=== PATIENT | male | born 1965 | race Caucasian/White ===

== ENCOUNTER → 2022-10-14 16:18 | Outpatient (CLI) | payer OTHER, MEDICAID, SELFPAY ==
[2022-10-14 16:52] LABS: Add Manual Diff / Slide Review NO; Basophils Absolute Auto 100 /uL (0-100); Basophils Percent Auto 1.2 % (0-2); Eosinophils Absolute Auto 100 /uL (0-450); Eosinophils Percent Auto 1.9 % (2-4); Hematocrit 47.1 % (41-53); Hemoglobin 15.9 g/dL (13.5-17.5); Lymphocytes Absolute Auto 2000 /uL (1100-4500); Lymphocytes Percent Auto 27.5 % (25-40); Mean Corpuscular HGB Conc 33.8 % (30-36); Mean Corpuscular Hemoglobin 29.5 PG (26-34); Mean Corpuscular Volume 87.1 fL (80-100); Monocytes Absolute Auto 700 /uL (0-900); Monocytes Percent Auto 9.9 % (3-14); Neutrophils Absolute Auto 4400 /uL (1500-7000); Neutrophils Percent Auto 59.5 % (50-75); Platelet Count 274 X10^3/uL (150-400); Red Blood Cell Count 5.41 X10^6/uL (4.5-5.9); White Blood Cell Count 7.4 X10^3/uL (4.5-11.0)
[2022-10-14 17:13] LABS: Alanine Aminotransferase 56 IU/L (<50); Albumin 4.4 g/dL (3.5-5.0); Albumin Globulin Ratio 1.5 (1.0-2.8); Alkaline Phosphatase 67 U/L (38-126); Aspartate Aminotransferase 37 IU/L (17-59); Bilirubin Total 0.5 mg/dL (0.2-1.3); Blood Urea Nitrogen 17 mg/dL (9-20); Calcium 9.5 mg/dL (8.4-10.2); Carbon Dioxide 27 mmol/L (22-32); Chloride 102 mmol/L (98-107); Cholesterol 227 mg/dL (140-199); Estimated Glomerular Filt Rate > 60 mL/min (>60); Glucose 84 mg/dL (70-100); HDL Cholesterol 47 mg/dL (40-60); HEMOLYSIS < 15 (0-50); LDL Cholesterol Calculated 137 mg/dL (<100); Potassium 4.4 mmol/L (3.4-5.1); Sodium 138 mmol/L (137-145); Total Protein 7.4 g/dL (6.3-8.2); Triglycerides 216 mg/dL (35-150)
[2022-10-14 17:14] LABS: Hemoglobin A1C% w Est Avg Glu 6.3 % (4.0-6.0)
[2022-10-14 17:42] LABS: Prostate Specific Antigen 1.35 ng/mL (0.10-4.00)
== END ==
PROVIDERS: PCP Family Medicine; Referring Provider Family Medicine; Visit Provider Family Medicine
DX: I10 Essential (primary) hypertension (principal); Z12.5 Encounter for screening for malignant neoplasm of prostate; Z13.1 Encounter for screening for diabetes mellitus; Z13.220 Encounter for screening for lipoid disorders
CPT/HCPCS: 36415; 80053; 80061; 83036; 84153; 85025

== ENCOUNTER → 2022-11-18 14:48 | Outpatient (CLI) | payer OTHER, MEDICAID, SELFPAY ==
--- NOTE | 2022-11-18 14:49 | DI.RAD.S_ITS ---
PROCEDURE: XR HIP W PEL IF DONE RT 2V INDICATIONS: chronic pain TECHNIQUE: AP pelvis with lateral view(s) of the right hip(s). COMPARISON: None. FINDINGS: Bones: No fractures or dislocations. Pelvic ring appears intact. There is indeterminate sclerotic lesion of the lateral right sacrum measuring approximately 1.9 cm in maximal diameter. Severe arthritic change of the right hip with superior lateral joint space obliteration. Associated osteophyte. Soft tissues: The visualized bowel gas pattern is normal. No suspicious soft tissue calcifications. IMPRESSION: 1. Severe degenerative arthritis of the right hip. 2. Nonspecific sclerotic lesion of the lateral right sacrum measuring 1.9 cm. Comment: Suggest correlation with previous pelvic imaging. Alternatively, a bone scan or MRI could be performed to evaluate the right sacrum. Dictated by: Yazan Briones M.D. on 11/18/2022 at 16:46 Approved by: Yazan Briones M.D. on 11/18/2022 at 16:48
== END ==
PROVIDERS: PCP Family Medicine; Referring Provider Family Medicine; Visit Provider Family Medicine
DX: M25.551 Pain in right hip (principal); M16.11 Unilateral primary osteoarthritis, right hip; M89.9 Disorder of bone, unspecified
CPT/HCPCS: 73502

== ENCOUNTER → 2022-12-02 12:58 | Outpatient (CLI) | payer OTHER, MEDICAID, SELFPAY ==
--- NOTE | 2022-12-02 14:02 | DI.MRI.S_ITS ---
PROCEDURE: MR PELIS WO/W CON INDICATIONS: eval of sacral lesion on Hip xray. TECHNIQUE: Noncontrast axial and oblique coronal T1 spin echo and STIR through the sacroiliac joints. COMPARISON: [facility], CR, XR HIP W PEL IF DONE RT 2V, 11/18/2022, 16:09. FINDINGS: Image quality: Excellent. Bones: Hypertrophic osteophyte formation is seen along the anterior aspect of the sacroiliac joints bilaterally, slightly greater on the right, which likely accounts for the sclerotic focus seen on radiographs from 11/18/2022. No suspicious sclerotic osseous lesion is seen. Degenerative changes are seen in the lower lumbar spine. No acute osseous edema or enhancement. No osseous erosions or ankylosis. Typically incidental Tarlov cysts are noted in the sacrum. Soft tissues: No presacral masses. Rectum appears normal in caliber and wall thickness. No pathologic free pelvic fluid. IMPRESSION: 1. Moderate bilateral sacroiliac joint osteoarthrosis with hypertrophic osteophytes projecting anterior to the sacroiliac joints, which are larger on the right than on the left. This finding likely accounts for the sclerotic lesion in this location on radiographs from 11/18/2022. No suspicious osseous mass or abnormal enhancement. 2. No signs of sacroiliitis or sacroiliac ankylosis. 3. Degenerative changes are noted in the included lumbar spine. Approved by: Hao Sun M.D. on 12/02/2022 at 15:31
== END ==
PROVIDERS: Family Provider Family Medicine; PCP Family Medicine; Referring Provider Family Medicine; Visit Provider Family Medicine
DX: M53.3 Sacrococcygeal disorders, not elsewhere classified (principal); M46.1 Sacroiliitis, not elsewhere classified; M47.816 Spondylosis without myelopathy or radiculopathy, lumbar region
CPT/HCPCS: 72197; A9579

== ENCOUNTER → 2022-12-10 08:14 | Outpatient (CLI) | payer OTHER, MEDICAID, SELFPAY ==
--- NOTE | 2022-12-10 21:43 | DI.NM.S_ITS ---
DATE OF SERVICE: 12/10/2022 PROCEDURE: Exercise treadmill stress and rest myocardial perfusion imaging with gating to assess ejection fraction and regional wall motion. ORDERING PROVIDER: Dr. Romelia Parker. INDICATIONS: The patient is a 57-year-old, obese, smoker with occasional atypical chest pain. EXERCISE TREADMILL TESTING: The patient was able to exercise for 5 minutes and 46 seconds on a standard Ariel protocol suggesting moderate-severely reduced exercise capacity with an SHAUN of +34%. He had a normal heart rate response, achieving a maximum heart rate of 149 BMP (91% of his predicted maximum). He had a mild hypertensive blood pressure response with a peak blood pressure of 210/80 in early recovery. He had no chest discomfort or other anginal symptoms. His resting ECG appeared normal and there were no significant ST-segment shifts or arrhythmias. At 4 minutes and 42 seconds of exercise, at a heart rate of 142 BPM, 25.6 millicuries of technetium-99m Myoview was injected and he was imaged 10 minutes later using a gated SPECT acquisition protocol. Earlier in the day, while at rest, he had been injected with 12.2 millicurie of technetium-99m Myoview and was imaged 15 minutes later, again using a gated SPECT acquisition protocol. FINDINGS: 1. Raw data: There is fair myocardial tracer uptake. Lung/heart ratio is normal at 0.30 with a normal TID ratio of 0.80. Unfortunately, the patient was unable to lie prone to assess for diaphragmatic attenuation. 2. Quantitated gated SPECT: Post-stress ejection fraction is estimated at 84% without any focal wall motion abnormality and specifically the inferior wall appears to have normal contractility. Resting ejection fraction is 69% with a normal resting end-diastolic volume of 87 mL. 3. Myocardial perfusion imaging: Post-stress supine images show a fairly normal myocardial perfusion pattern although with a mild perfusion defect in the inferior wall, but sparing the apex in a pattern that would be consistent with diaphragmatic attenuation. Unfortunately, the patient was unable to lie prone to assess for this. His resting images show an identical perfusion pattern without any improvement in the inferior defect. IMPRESSION: 1. Probable normal myocardial perfusion study. 2. Mild, fixed proximal and mid inferior defect that likely reflects diaphragmatic attenuation, although there are no prone images to assess for this. While a previous nontransmural infarction cannot be entirely excluded, the absence of any wall motion abnormality in this area would mitigate against this. There is no evidence for any myocardial ischemia. 3. Normal left ventricular systolic function without any focal wall motion abnormality. 4. Moderate-severely reduced exercise capacity without angina or ECG evidence of ischemia. There are no arrhythmias seen. Cristian Reed - KACY/amina/colby doc#: [id number]/job#: [id number] dd: 12/10/2022 17:00:00 dt: 12/10/2022 21:24:00 DICTATING MD/COPIES TO: Brad Patino MD; Dr. Romelia Parker COPIES MNE: GROVER; ; Dr. Romelia Parker
== END ==
PROVIDERS: Family Provider Family Medicine; PCP Family Medicine; Referring Provider Family Medicine; Visit Provider Family Medicine
DX: R07.89 Other chest pain (principal); I10 Essential (primary) hypertension; F17.200 Nicotine dependence, unspecified, uncomplicated; E66.9 Obesity, unspecified
CPT/HCPCS: 78452; 93017; A9502

== ENCOUNTER 2023-02-14 09:00 | Outpatient (RCR) | payer OTHER, MEDICAID, SELFPAY ==
--- NOTE | 2023-01-02 15:02 | PT.OIE ---
Current Diagnoses Pain in right hip (01/01/23) Past Medical History (Last Updated 11/18/22 @ 13:59 by Romelia Parker DO) Atypical chest pain Benign essential HTN Hearing loss Hyperlipidemia, mixed IFG (impaired fasting glucose) Restless leg syndrome Shoulder pain Tobacco dependence Vision disorder Past Surgical History (Last Updated 11/17/22 @ 21:11 by Saba Flynn) Anesthesia History of right knee surgery (~1973) Visit Care Team Role Provider Type Romelia Parker DO Attending Provider Physician Family Provider Primary Care Provider Referring Provider Specialty: [facility] Practice Address: [address] [place] [address], [address], [facility] Email: [email or web address] Physical Therapy Initial Evaluation PT-OP-A Visit Information Start: 12/31/22 17:55 Freq: Status: Active Protocol: Document 01/01/23 09:45 [facility] (Rec: 01/01/23 14:08 [facility] [id number]) Out-Patient Physical Therapy Visit Information Visit Information Visit Type Initial Evaluation Visit Start Time 09:45 Visit Stop Time 10:30 Total Visit Minutes 45 Visit Number 1 Evaluation Information Evaluation Date 01/01/23 PT-OP-B Current Condition Start: 12/31/22 17:55 Freq: Status: Active Protocol: Document 01/01/23 09:45 [facility] (Rec: 01/01/23 11:21 [facility] [id number]) Current Condition History of Current Condition Onset Date 1.5 years ago Current Complaints right hip pain limiting activies and ability to work History of Current Condition pt reports about a year and a half ago he has on his friends boat and went to lift up his right leg and felt a sharp pain in the anterior hip, now when he moves off the couch he will experience sharp pain into the right hip and into the gluteal region. 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 He hasn't been able to work in the last 1.5 year. He has not been able to execise and he has gained 25-30 lbs. Rest makes it better. 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 Current Functional Impairments (Reported) Functional Limitations- ADL's pt has moderate difficulty with activities such as donning and doffing his shoes and squatting Functional Limitations- Mobility/Gait pain prevents walking greater than 2 blocks Functional Limitations- Other pt has been unable to return to work due to hip pain PT-OP-C Subjective Start: 01/02/23 15:00 Freq: Status: Active Protocol: Document 01/01/23 09:45 [facility] (Rec: 01/02/23 15:02 [facility] [id number]) Patient Questionnaires Lower Extremity Functional Scale LEFS Score 33 LEFS Impairment 40 to 59% Impaired (Score 32- 47) OP-PT Pain Assessment Pain Assessment Grid Paper Pain Assessment Grid Completed Yes Location right anterior hip Intensity 6 Scale Used Numeric (0 - 10) PT-OP-F Manual Assessment Start: 12/31/22 17:55 Freq: Status: Active Protocol: Document 01/01/23 09:45 [facility] (Rec: 01/01/23 14:09 [facility] [id number]) Manual Assessments Soft Tissue Assessment Soft Tissue Mobility Assessment right sided guarding and tightness of the quadriceps, iliopsoas, adductors Joint Mobility Assessment Joint Mobility Assessment decreased posterior and inferior glide of the right hip capsule PT-OP-G Mobility & Gait Start: 12/31/22 17:55 Freq: Status: Active Protocol: Document 01/01/23 09:45 [facility] (Rec: 01/02/23 14:56 [facility] [id number]) OP Gait Assessment Gait Deviations General Gait Pattern Antalgic,Wide Based Gait Factors Limiting Gait Function Factors Limiting Gait Function Limited Range of Motion,Pain Comments Gait Comments wide based gait and pain with ambulation walking greater than 2 blocks PT-OP-J Posture/Palpation/Skin Start: 12/31/22 17:55 Freq: Status: Active Protocol: Document 01/01/23 09:45 [facility] (Rec: 01/02/23 14:55 [facility] [id number]) Palpation Assessment Location right anterior hip Palpation Findings Soft Tissue Tightness,Spasm, Muscle Guarding,Tenderness Palpation Details tenderness over the anterior hip, tightness at the adductor sean attachment and along the quad proximal attachment PT-OP-K Range of Motion Start: 04/18/23 17:55 Freq: Status: Active Protocol: Document 01/01/23 09:45 [facility] (Rec: 01/01/23 14:11 [facility] [id number]) Hip Goniometric Range of Motion Hip Right Flexion w/Knee Flexed 90 Straight Leg Raise 45 Extension 10 Internal Rotation 5 External Rotation 10 Comments pain with AROM hip flexion, ER , abduction PROM is much more tolerated Hip ROM Limitations Hip ROM Limitations Soft Tissue Tightness,Bony Restriction,Pain Comments pt presenting with impingement type symptoms as well as OA of the right hip, PROM is much more tolerated than AROM PT-OP-M Strength Start: 12/31/22 17:55 Freq: Status: Active Protocol: Document 01/01/23 09:45 [facility] (Rec: 01/02/23 14:56 [facility] [id number]) Hip Strength Hip Manual Muscle Testing Right Flexion (L2) 3 Fair Abduction 2+ Poor+ Adduction 2+ Poor+ PT-OP-Q Treatments Start: 12/31/22 17:55 Freq: Status: Active Protocol: Document 01/01/23 09:45 [facility] (Rec: 01/01/23 14:15 [facility] [id number]) Therapeutic Exercises Supine Exercises prone knee flexion stretch Side right Comments pt to use strap at home to stretch quads in supine Standing Exercises sidelying quad stretch Reps/Minutes hold 1 min standing quad stretch Reps/Minutes hold 30 sec to 1 min Manual Therapy Treatment Manual Techniques MWM for hip ER Type lateral hip distraction with movement into ER Body Position Hooklying Comments good tolerance MWM for hip flexion using mobilization belt Type MWM for hip flexion Body Position Hooklying Comments manual hip distraction with mobilization belt with movement into hip flexion, pt tolerated well manual hip decompression with belt Type hip distraction and decompression with mobilization belt Body Position Hooklying Reps/Duration approx 4 min spent with hip distraction PT-OP-T Assessment and Plan Start: 12/31/22 17:55 Freq: Status: Active Protocol: Document 01/01/23 09:45 [facility] (Rec: 01/01/23 14:18 [facility] [id number]) Physical Therapy Assessment Rehab Potential Rehabilitation Potential Good Evaluation Complexity Number of Personal Factors/Comorbidities 0 Number of Body Systems Impaired 1-2 Clinical Presentation at Evaluation Stable Impairments Impairments Activity Tolerance,Functional Activities,Functional Mobility ,Gait,Pain,ROM,Soft Tissue Mobility,Strength Goals 3 Impairment anterior hip and groin pain rated 5-6/10 Multiple Sclerosis Nurse Goal (LTG) pt reports a overall reduction in hip pain to 1-3/10 LTG Duration 8 weeks 2 Impairment Decreased hip ROM Short Term Goal (STG) pt is given a HEP to begin working on hip stretches to improve hip ROM STG Duration 3 weeks Multiple Sclerosis Nurse Goal (LTG) Pt demonstrates improvements in Hip ROM to WFL LTG Duration 8 weeks 1 Impairment antalgic gait pattern with wide legged gait due to pain and pt has moderate difficulty walking more than 2 blocks due to pain Multiple Sclerosis Nurse Goal (LTG) Pt's gait pattern is normalized and he is able to walk up to 1 mile without a increase in anterior hip pain LTG Duration 8 weeks Assessment Summary Assessment 57 year old male referred to PT with 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 Symptoms started approximately 1.5 years ago. Pt has a recent Xray which shows severe degenerative arthritis right hip. Pt notes pain increases with activity and is better with rest. He is limited in his walking duration to 2 blocks due to c/o anterior hip pain. With examination today he is tight and guarded in the right adductors, right quadricep, and hip flexor. Pain increases with AROM hip flexion, ER, IR. I am able to passively move his hip without c/o pain. There is tightness at end range hip flexion, ER, IR. There is a overall decrease in strength of hip abduction and hip ER. Treatment today included hip distraction with gentle stretching as well as inferior glides and lateral mobilizations of the hip with mobilization which pt tolerated well. He was given a HEP for stretching for the hip flexor and quads. Pt is a good candidate for PT Physical Therapy Plan Frequency and Duration Frequency of Treatment 2x/Week Duration of treatment (weeks) 8 Plan of Care Start Date 01/01/23 Plan of Care End Date 02/26/23 Therapeutic Interventions Therapeutic Interventions Home Exercise Program,Joint Mobilizations,Manual Therapy, Patient/Caregiver Education, Self-Care/Home Management,Soft Tissue Mobilization, Therapeutic Exercises Modalities Cold Pack/Ice Massage Next Visit Focus/Plan Next Note Type Treatment Note Next Visit Plan continue with manual therapy techniques to decompress the hip joint, work on stretches for the quad, iliopsoas, posterior gluteals, hamstrings .
--- NOTE | 2023-01-02 15:02 | PT.OPPOC ---
Physical, Occupational & Speech Therapy At [facility] Current Diagnoses Pain in right hip (01/01/23) Visit Care Team Role Provider Type Romelia Parker DO Attending Provider Physician Family Provider Primary Care Provider Referring Provider Specialty: Family Practice Address: [address] [place] [address], [address], [address] Email: [email or web address] Plan Of Care PT-OP-T Assessment and Plan Start: 12/31/22 17:55 Freq: Status: Active Protocol: Document 01/01/23 09:45 [facility] (Rec: 01/01/23 14:18 [facility] [id number]) Physical Therapy Assessment Rehab Potential Rehabilitation Potential Good Evaluation Complexity Number of Personal Factors/Comorbidities 0 Number of Body Systems Impaired 1-2 Clinical Presentation at Evaluation Stable Impairments Impairments Activity Tolerance,Functional Activities,Functional Mobility ,Gait,Pain,ROM,Soft Tissue Mobility,Strength Goals 3 Impairment anterior hip and groin pain rated 5-6/10 Wood Room Supervisor Goal (LTG) pt reports a overall reduction in hip pain to 1-3/10 LTG Duration 8 weeks 2 Impairment Decreased hip ROM Short Term Goal (STG) pt is given a HEP to begin working on hip stretches to improve hip ROM STG Duration 3 weeks Assisted Goal (LTG) Pt demonstrates improvements in Hip ROM to WFL LTG Duration 8 weeks 1 Impairment antalgic gait pattern with wide legged gait due to pain and pt has moderate difficulty walking more than 2 blocks due to pain Assisted Goal (LTG) Pt's gait pattern is normalized and he is able to walk up to 1 mile without a increase in anterior hip pain LTG Duration 8 weeks Assessment Summary Assessment 57 year old male referred to PT with 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 Symptoms started approximately 1.5 years ago. Pt has a recent Xray which shows severe degenerative arthritis right hip. Pt notes pain increases with activity and is better with rest. He is limited in his walking duration to 2 blocks due to c/o anterior hip pain. With examination today he is tight and guarded in the right adductors, right quadriceps, and hip flexor. Pain increases with AROM hip flexion, ER, IR. I am able to passively move his hip without c/o pain. There is tightness at end range hip flexion, ER, IR. There is a overall decrease in strength of hip abduction and hip ER. Treatment today included hip distraction with gentle stretching as well as inferior glides and lateral mobilizations of the hip with mobilization which pt tolerated well. He was given a HEP for stretching for the hip flexor and quads. Pt is a good candidate for PT Physical Therapy Plan Frequency and Duration Frequency of Treatment 2x/Week Duration of treatment (weeks) 8 Plan of Care Start Date 01/01/23 Plan of Care End Date 02/26/23 Therapeutic Interventions Therapeutic Interventions Home Exercise Program,Joint Mobilizations,Manual Therapy, Patient/Caregiver Education, Self-Care/Home Management,Soft Tissue Mobilization, Therapeutic Exercises Modalities Cold Pack/Ice Massage Next Visit Focus/Plan Next Note Type Treatment Note Next Visit Plan continue with manual therapy techniques to decompress the hip joint, work on stretches for the quad, iliopsoas, posterior gluteals, hamstrings . Plan of Care Dates Plan of Care Start Date 01/01/23 Plan of Care End Date 02/26/23 Electronically Signed by: Nicole Weiner, PT 01/02/23 2098 If you are in agreement with this Plan of Care, please return a signed and dated copy. I have reviewed this Plan of Care and certify that the skilled therapy services above are required to meet the patient?s needs. Physician Signature Date Printed Name and Credentials Clinical Instructor Signature Printed Name and Credentials
--- NOTE | 2023-01-17 09:48 | PT.OTN ---
Current Diagnoses Pain in right hip (01/17/23) Physical Therapy Treatment Note PT-OP-A Visit Information Start: 12/31/22 17:55 Freq: Status: Active Protocol: Document 01/17/23 09:00 SP (Rec: 01/17/23 09:56 SP [id number]) Out-Patient Physical Therapy Visit Information Visit Information Visit Type Treatment Note Visit Start Time 09:00 Visit Stop Time 09:48 Total Visit Minutes 48 Visit Number 3 Number of BALLET COMPANY ARTISTIC DIRECTOR Visits 1 Evaluation Information Evaluation Date 01/01/23 PT-OP-B Current Condition Start: 12/31/22 17:55 Freq: Status: Active Protocol: Document 01/01/23 09:45 [facility] (Rec: 01/01/23 11:21 [facility] [id number]) Current Condition History of Current Condition Onset Date 1.5 years ago Current Complaints right hip pain limiting activies and ability to work History of Current Condition pt reports about a year and a half ago he has on his friends boat and went to lift up his right leg and felt a sharp pain in the anterior hip, now when he moves off the couch he will experience sharp pain into the right hip and into the gluteal region. 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 He hasn't been able to work in the last 1.5 year. He has not been able to execise and he has gained 25-30 lbs. Rest makes it better. 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 Current Functional Impairments (Reported) Functional Limitations- ADL's pt has moderate difficulty with activities such as donning and doffing his shoes and squatting Functional Limitations- Mobility/Gait pain prevents walking greater than 2 blocks Functional Limitations- Other pt has been unable to return to work due to hip pain PT-OP-C Subjective Start: 01/02/23 15:00 Freq: Status: Active Protocol: Document 01/17/23 09:00 SP (Rec: 01/17/23 09:56 SP [id number]) OP-PT Subjective Patient Comments Patient Comments Pt reports after 1st treatment massage did well and anterior R hip loosened up with less pain. He stated his R hip having alot more pain, walks with decrease RLE stance time and bent over, feels the hip mobs and massage deeper was to much and to long. Wants to find medium. PT-OP-F Manual Assessment Start: 12/31/22 17:55 Freq: Status: Active Protocol: Document 01/01/23 09:45 [facility] (Rec: 01/01/23 14:09 [facility] [id number]) Manual Assessments Soft Tissue Assessment Soft Tissue Mobility Assessment right sided guarding and tightness of the quadriceps, iliopsoas, adductors Joint Mobility Assessment Joint Mobility Assessment decreased posterior and inferior glide of the right hip capsule PT-OP-G Mobility & Gait Start: 12/31/22 17:55 Freq: Status: Active Protocol: Document 01/01/23 09:45 [facility] (Rec: 01/02/23 14:56 [facility] [id number]) OP Gait Assessment Gait Deviations General Gait Pattern Antalgic,Wide Based Gait Factors Limiting Gait Function Factors Limiting Gait Function Limited Range of Motion,Pain Comments Gait Comments wide based gait and pain with ambulation walking greater than 2 blocks PT-OP-J Posture/Palpation/Skin Start: 12/31/22 17:55 Freq: Status: Active Protocol: Document 01/01/23 09:45 [facility] (Rec: 01/02/23 14:55 [facility] [id number]) Palpation Assessment Location right anterior hip Palpation Findings Soft Tissue Tightness,Spasm, Muscle Guarding,Tenderness Palpation Details tenderness over the anterior hip, tightness at the adductor sean attachment and along the quad proximal attachment PT-OP-K Range of Motion Start: 12/31/22 17:55 Freq: Status: Active Protocol: Document 01/01/23 09:45 [facility] (Rec: 01/01/23 14:11 [facility] [id number]) Hip Goniometric Range of Motion Hip Right Flexion w/Knee Flexed 90 Straight Leg Raise 45 Extension 10 Internal Rotation 5 External Rotation 10 Comments pain with AROM hip flexion, ER , abduction PROM is much more tolerated Hip ROM Limitations Hip ROM Limitations Soft Tissue Tightness,Bony Restriction,Pain Comments pt presenting with impingement type symptoms as well as OA of the right hip, PROM is much more tolerated than AROM PT-OP-M Strength Start: 12/31/22 17:55 Freq: Status: Active Protocol: Document 01/01/23 09:45 [facility] (Rec: 01/02/23 14:56 [facility] [id number]) Hip Strength Hip Manual Muscle Testing Right Flexion (L2) 3 Fair Abduction 2+ Poor+ Adduction 2+ Poor+ PT-OP-Q Treatments Start: 12/31/22 17:55 Freq: Status: Active Protocol: Document 01/17/23 09:00 SP (Rec: 01/17/23 09:56 SP [id number]) Therapeutic Exercises Supine Exercises cookie stretch Supine Exercise Name initiated in PT Side right Reps/Minutes 20 SH Comments no adverse affects Standing Exercises hip ext Standing Exercise Name discussed add HEP (give HO next tx) Side right Resistance ROM Reps/Minutes x5 reps Comments painfree Other Exercises 1/2 kneel Other Exercise Name hip flexor stretch Reps/Minutes x2 hold 20 sec Comments ok wt shfit fwd, pain anterior hip quadruped rock backs Reps/Minutes x 10 Comments pt shown how to use mobilization belt for self capsule mobs Manual Therapy Treatment Soft Tissue Mobilization R hip Body Location psoas, TFL, quad Mobilization Type Cross-Friction,Myofascial Release,Sustained Pressure, Other Manual Techniques MWM for hip ER Type lateral hip distraction with movement into IR &ER Body Position Hooklying Comments irritation MWM for hip flexion using mobilization belt Type MWM for hip flexion Body Position Hooklying Comments manual hip distraction with mobilization belt with movement into hip flexion, pt tolerated well manual hip decompression with belt Type hip distraction and decompression with mobilization belt Body Position Hooklying Reps/Duration approx 4 min spent with hip distraction PT-OP-T Assessment and Plan Start: 12/31/22 17:55 Freq: Status: Active Protocol: Document 01/17/23 09:00 SP (Rec: 01/17/23 09:56 SP [id number]) Physical Therapy Assessment Goals 3 Impairment anterior hip and groin pain rated 5-6/10 Wing Mailer Machine Operator Goal (LTG) pt reports a overall reduction in hip pain to 1-3/10 LTG Duration 8 weeks 2 Impairment Decreased hip ROM Short Term Goal (STG) pt is given a HEP to begin working on hip stretches to improve hip ROM STG Duration 3 weeks Wing Mailer Machine Operator Goal (LTG) Pt demonstrates improvements in Hip ROM to WFL LTG Duration 8 weeks 1 Impairment antalgic gait pattern with wide legged gait due to pain and pt has moderate difficulty walking more than 2 blocks due to pain Correction Goal (LTG) Pt's gait pattern is normalized and he is able to walk up to 1 mile without a increase in anterior hip pain LTG Duration 8 weeks Assessment Summary Assessment Pt no adverse affects to cookie stretch and standing hip extension on R AROM. He reports no significant in improvement in R hip pain post manual with continued pain into full standing. HEP reviewed quadruped rocking not tolerating sit back today. Physical Therapy Plan Frequency and Duration Frequency of Treatment 2x/Week Duration of treatment (weeks) 8 Plan of Care Start Date 01/01/23 Plan of Care End Date 02/26/23 Therapeutic Interventions Therapeutic Interventions Home Exercise Program,Joint Mobilizations,Manual Therapy, Patient/Caregiver Education, Self-Care/Home Management,Soft Tissue Mobilization, Therapeutic Exercises Modalities Cold Pack/Ice Massage Next Visit Focus/Plan Next Note Type Treatment Note Next Visit Plan continue with manual therapy techniques to decompress the hip joint, work on stretches for the quad, iliopsoas, posterior gluteals, hamstrings .
--- NOTE | 2023-01-21 17:42 | PT.OTN ---
Current Diagnoses Pain in right hip (01/21/23) Physical Therapy Treatment Note PT-OP-A Visit Information Start: 12/31/22 17:55 Freq: Status: Active Protocol: Document 01/21/23 09:03 [facility] (Rec: 01/21/23 09:47 [facility] [id number]) Out-Patient Physical Therapy Visit Information Visit Information Visit Type Treatment Note Visit Start Time 09:00 Visit Stop Time 09:45 Total Visit Minutes 45 Visit Number 4 Number of GEOPHYSICAL DRAFTER Visits 0 PT-OP-B Current Condition Start: 12/31/22 17:55 Freq: Status: Active Protocol: Document 01/01/23 09:45 [facility] (Rec: 01/01/23 11:21 [facility] [id number]) Current Condition History of Current Condition Onset Date 1.5 years ago Current Complaints right hip pain limiting activies and ability to work History of Current Condition pt reports about a year and a half ago he has on his friends boat and went to lift up his right leg and felt a sharp pain in the anterior hip, now when he moves off the couch he will experience sharp pain into the right hip and into the gluteal region. 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 He hasn't been able to work in the last 1.5 year. He has not been able to execise and he has gained 25-30 lbs. Rest makes it better. 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 Current Functional Impairments (Reported) Functional Limitations- ADL's pt has moderate difficulty with activities such as donning and doffing his shoes and squatting Functional Limitations- Mobility/Gait pain prevents walking greater than 2 blocks Functional Limitations- Other pt has been unable to return to work due to hip pain PT-OP-C Subjective Start: 01/02/23 15:00 Freq: Status: Active Protocol: Document 01/21/23 09:03 [facility] (Rec: 01/21/23 09:47 [facility] [id number]) OP-PT Subjective Patient Comments Patient Comments pt notes he feels that he is not sure if his hip is worse, he feels he is compensating with his walking PT-OP-F Manual Assessment Start: 12/31/22 17:55 Freq: Status: Active Protocol: Document 01/01/23 09:45 [facility] (Rec: 01/01/23 14:09 [facility] [id number]) Manual Assessments Soft Tissue Assessment Soft Tissue Mobility Assessment right sided guarding and tightness of the quadriceps, iliopsoas, adductors Joint Mobility Assessment Joint Mobility Assessment decreased posterior and inferior glide of the right hip capsule PT-OP-G Mobility & Gait Start: 12/31/22 17:55 Freq: Status: Active Protocol: Document 01/01/23 09:45 [facility] (Rec: 01/02/23 14:56 [facility] [id number]) OP Gait Assessment Gait Deviations General Gait Pattern Antalgic,Wide Based Gait Factors Limiting Gait Function Factors Limiting Gait Function Limited Range of Motion,Pain Comments Gait Comments wide based gait and pain with ambulation walking greater than 2 blocks PT-OP-J Posture/Palpation/Skin Start: 12/31/22 17:55 Freq: Status: Active Protocol: Document 01/01/23 09:45 [facility] (Rec: 01/02/23 14:55 [facility] [id number]) Palpation Assessment Location right anterior hip Palpation Findings Soft Tissue Tightness,Spasm, Muscle Guarding,Tenderness Palpation Details tenderness over the anterior hip, tightness at the adductor sean attachment and along the quad proximal attachment PT-OP-K Range of Motion Start: 12/31/22 17:55 Freq: Status: Active Protocol: Document 01/01/23 09:45 [facility] (Rec: 01/01/23 14:11 [facility] [id number]) Hip Goniometric Range of Motion Hip Right Flexion w/Knee Flexed 90 Straight Leg Raise 45 Extension 10 Internal Rotation 5 External Rotation 10 Comments pain with AROM hip flexion, ER , abduction PROM is much more tolerated Hip ROM Limitations Hip ROM Limitations Soft Tissue Tightness,Bony Restriction,Pain Comments pt presenting with impingement type symptoms as well as OA of the right hip, PROM is much more tolerated than AROM PT-OP-M Strength Start: 12/31/22 17:55 Freq: Status: Active Protocol: Document 01/01/23 09:45 [facility] (Rec: 01/02/23 14:56 [facility] [id number]) Hip Strength Hip Manual Muscle Testing Right Flexion (L2) 3 Fair Abduction 2+ Poor+ Adduction 2+ Poor+ PT-OP-Q Treatments Start: 12/31/22 17:55 Freq: Status: Active Protocol: Document 01/21/23 09:03 [facility] (Rec: 01/21/23 09:47 [facility] [id number]) Cardio Equipment Recumbent Elliptical (Biodex) Duration (Minutes) 5 Resistance 2 Therapeutic Exercises Supine Exercises cookie stretch Reps/Minutes 30 sec prone knee flexion stretch Side right Comments pt to use strap at home to stretch quads in supine Standing Exercises sidelying quad stretch Reps/Minutes hold 1 min Other Exercises quadruped rock backs Reps/Minutes x 10 Comments pt shown how to use mobilization belt for self capsule mobs Manual Therapy Treatment Soft Tissue Mobilization R hip Body Location psoas, TFL, quad Mobilization Type Cross-Friction,Myofascial Release,Sustained Pressure, Other Manual Techniques manual adductor stretch Reps/Duration manual stretch for 1-2 min Comments pt in supine PT-OP-T Assessment and Plan Start: 12/31/22 17:55 Freq: Status: Active Protocol: Document 01/21/23 09:03 [facility] (Rec: 01/21/23 09:47 [facility] [id number]) Physical Therapy Assessment Assessment Summary Assessment Pt did well today with warming up on biodex, gentle soft tissue to the quads and adductors and then stretches for adductor, quads, iliopsoas . He was able to perform quadruped rock backs with greater ease today. Physical Therapy Plan Frequency and Duration Frequency of Treatment 2x/Week Duration of treatment (weeks) 8 Plan of Care Start Date 01/01/23 Plan of Care End Date 02/26/23 Next Visit Focus/Plan Next Note Type Treatment Note Next Visit Plan trial of ultrasound after the biodex next visit to the proximal adductor attachments, add in standing adductor stretch, begin working on lateral hip strengthening
--- NOTE | 2023-01-23 12:09 | PT.OTN ---
Current Diagnoses Pain in right hip (01/23/23) Physical Therapy Treatment Note PT-OP-A Visit Information Start: 12/31/22 17:55 Freq: Status: Active Protocol: Document 01/23/23 09:11 SW (Rec: 01/23/23 11:58 SW [id number]) Out-Patient Physical Therapy Visit Information Visit Information Visit Type Treatment Note Visit Start Time 09:15 Visit Stop Time 10:00 Total Visit Minutes 45 Visit Number 5 Number of CULINARY MANAGER Visits 1 PT-OP-B Current Condition Start: 12/31/22 17:55 Freq: Status: Active Protocol: Document 01/01/23 09:45 [facility] (Rec: 01/01/23 11:21 [facility] [id number]) Current Condition History of Current Condition Onset Date 1.5 years ago Current Complaints right hip pain limiting activies and ability to work History of Current Condition pt reports about a year and a half ago he has on his friends boat and went to lift up his right leg and felt a sharp pain in the anterior hip, now when he moves off the couch he will experience sharp pain into the right hip and into the gluteal region. 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 He hasn't been able to work in the last 1.5 year. He has not been able to execise and he has gained 25-30 lbs. Rest makes it better. 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 Feels like slow and gradual is the pace otherwise he feels more pain. PT-OP-F Manual Assessment Start: 12/31/22 17:55 Freq: Status: Active Protocol: Document 01/01/23 09:45 [facility] (Rec: 01/01/23 14:09 [facility] [id number]) Manual Assessments Soft Tissue Assessment Soft Tissue Mobility Assessment right sided guarding and tightness of the quadriceps, iliopsoas, adductors Joint Mobility Assessment Joint Mobility Assessment decreased posterior and inferior glide of the right hip capsule PT-OP-G Mobility & Gait Start: 12/31/22 17:55 Freq: Status: Active Protocol: Document 01/01/23 09:45 [facility] (Rec: 01/02/23 14:56 [facility] [id number]) OP Gait Assessment Gait Deviations General Gait Pattern Antalgic,Wide Based Gait Factors Limiting Gait Function Factors Limiting Gait Function Limited Range of Motion,Pain Comments Gait Comments wide based gait and pain with ambulation walking greater than 2 blocks PT-OP-J Posture/Palpation/Skin Start: 12/31/22 17:55 Freq: Status: Active Protocol: Document 01/01/23 09:45 [facility] (Rec: 01/02/23 14:55 [facility] [id number]) Palpation Assessment Location right anterior hip Palpation Findings Soft Tissue Tightness,Spasm, Muscle Guarding,Tenderness Palpation Details tenderness over the anterior hip, tightness at the adductor sean attachment and along the quad proximal attachment PT-OP-K Range of Motion Start: 12/31/22 17:55 Freq: Status: Active Protocol: Document 01/01/23 09:45 [facility] (Rec: 01/01/23 14:11 [facility] [id number]) Hip Goniometric Range of Motion Hip Right Flexion w/Knee Flexed 90 Straight Leg Raise 45 Extension 10 Internal Rotation 5 External Rotation 10 Comments pain with AROM hip flexion, ER , abduction PROM is much more tolerated Hip ROM Limitations Hip ROM Limitations Soft Tissue Tightness,Bony Restriction,Pain Comments pt presenting with impingement type symptoms as well as OA of the right hip, PROM is much more tolerated than AROM PT-OP-M Strength Start: 12/31/22 17:55 Freq: Status: Active Protocol: Document 01/01/23 09:45 [facility] (Rec: 01/02/23 14:56 [facility] [id number]) Hip Strength Hip Manual Muscle Testing Right Flexion (L2) 3 Fair Abduction 2+ Poor+ Adduction 2+ Poor+ PT-OP-Q Treatments Start: 12/31/22 17:55 Freq: Status: Active Protocol: Document 01/23/23 09:11 (Rec: 01/23/23 11:58 [id number]) Cardio Equipment Recumbent Elliptical (Biodex) Duration (Minutes) 5 Resistance 2 Therapeutic Exercises Supine Exercises cookie stretch Side right Reps/Minutes 2 x 30 Comments w/gentle psoas release Standing Exercises hip add stretch Side right Resistance AROM Equipment Used UE support prn Reps/Minutes 3 x 30 Other Exercises quadruped rock backs Side bilateral Resistance AROM Equipment Used Mat table Reps/Minutes x 10 Comments VC for alignment to feel greater stretch in hips Manual Therapy Treatment Soft Tissue Mobilization R hip Body Location psoas, TFL, quad Mobilization Type Cross-Friction,Myofascial Release,Sustained Pressure, Other Intensity/Depth Moderate Body Position Supine Comments Palpation tenderness to R hip adductor mm/psoas Manual Techniques Hip ROM Type Flex,ext, IR, ER Body Location R hip Body Position Supine Comments very limited ROM and pain w/ IR manual hip decompression with belt Type hip distraction and decompression with mobilization belt Body Position Hooklying Reps/Duration approx 4 min spent with hip distraction PT-OP-R Modalities Start: 01/23/23 12:02 Freq: Status: Active Protocol: Document 01/23/23 09:11 (Rec: 01/23/23 12:08 [id number]) Ultrasound Therapy Treatment R hip add Treatment Duration (minutes) 10 Patient Position Supine Coupling Medium Ultrasound Gel Applicator Size (cm2) 5 Frequency Setting (mHz) 1 Mode Setting Continuous Duty Cycle 100% Intensity Setting (w/cm2) 1.5 PT-OP-T Assessment and Plan Start: 12/31/22 17:55 Freq: Status: Active Protocol: Document 01/23/23 09:11 (Rec: 01/23/23 11:58 [id number]) Physical Therapy Assessment Goals 3 Impairment anterior hip and groin pain rated 5-6/10 Computer Applications Engineer Goal (LTG) pt reports a overall reduction in hip pain to 1-3/10 LTG Duration 8 weeks 2 Impairment Decreased hip ROM Short Term Goal (STG) pt is given a HEP to begin working on hip stretches to improve hip ROM STG Duration 3 weeks Computer Applications Engineer Goal (LTG) Pt demonstrates improvements in Hip ROM to WFL LTG Duration 8 weeks 1 Impairment antalgic gait pattern with wide legged gait due to pain and pt has moderate difficulty walking more than 2 blocks due to pain Long-Term Goal (LTG) Pt's gait pattern is normalized and he is able to walk up to 1 mile without a increase in anterior hip pain LTG Duration 8 weeks Assessment Summary Assessment Pt tolerated biodex well last session, warmed up biodex this session, no discomfort present. Trialed Ultrasound on R hip adductor mm origin this session 1 mHz 1.5 W/cm @ 100% duty cycle for increased circulation, cellular metabolism, and to assist w/ chronic pain, pt did not notice immediate effects, discuss pt feedback w/ ultrasound next session. Gentle stretching, ROM, and STM, pt had difficulty relaxing mm's moderate amount of guarding present. Physical Therapy Plan Frequency and Duration Frequency of Treatment 2x/Week Duration of treatment (weeks) 8 Plan of Care Start Date 01/01/23 Plan of Care End Date 02/26/23 Therapeutic Interventions Therapeutic Interventions Home Exercise Program,Joint Mobilizations,Manual Therapy, Patient/Caregiver Education, Self-Care/Home Management,Soft Tissue Mobilization, Therapeutic Exercises Modalities Cold Pack/Ice Massage Next Visit Focus/Plan Next Note Type Treatment Note Next Visit Plan follow up on trial of ultrasound next visit to the proximal adductor attachments, add in standing adductor stretch, begin working on lateral hip strengthening
--- NOTE | 2023-02-07 09:22 | PT-OP ANOTE ---
Pt did not show for today's appt, QUOTE CLERK called in regard and left voicemail, reminded [facility] policy with potential fee may receive and next appt with PT 02/11 at 0900.
--- NOTE | 2023-02-11 17:08 | PT.OTN ---
Current Diagnoses Pain in right hip (02/11/23) Physical Therapy Treatment Note PT-OP-A Visit Information Start: 12/31/22 17:55 Freq: Status: Active Protocol: Document 02/11/23 09:02 [facility] (Rec: 02/11/23 09:45 [facility] [id number]) Out-Patient Physical Therapy Visit Information Visit Information Visit Type Treatment Note Visit Start Time 09:00 Visit Stop Time 09:45 Total Visit Minutes 45 Visit Number 6 Number of RETAIL CUSTOMER SERVICE SPECIALIST Visits 0 PT-OP-B Current Condition Start: 12/31/22 17:55 Freq: Status: Active Protocol: Document 01/01/23 09:45 [facility] (Rec: 01/01/23 11:21 [facility] [id number]) Current Condition History of Current Condition Onset Date 1.5 years ago Current Complaints right hip pain limiting activies and ability to work History of Current Condition pt reports about a year and a half ago he has on his friends boat and went to lift up his right leg and felt a sharp pain in the anterior hip, now when he moves off the couch he will experience sharp pain into the right hip and into the gluteal region. 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 He hasn't been able to work in the last 1.5 year. He has not been able to execise and he has gained 25-30 lbs. Rest makes it better. 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 Current Functional Impairments (Reported) Functional Limitations- ADL's pt has moderate difficulty with activities such as donning and doffing his shoes and squatting Functional Limitations- Mobility/Gait pain prevents walking greater than 2 blocks Functional Limitations- Other pt has been unable to return to work due to hip pain PT-OP-C Subjective Start: 01/02/23 15:00 Freq: Status: Active Protocol: Document 02/11/23 09:02 [facility] (Rec: 02/11/23 09:45 [facility] [id number]) OP-PT Subjective Patient Comments Patient Comments pt notes he went shrimping and being on the boat, he notes gentle massage and hip stretching help his hip for a few days. PT-OP-F Manual Assessment Start: 12/31/22 17:55 Freq: Status: Active Protocol: Document 01/01/23 09:45 [facility] (Rec: 01/01/23 14:09 [facility] [id number]) Manual Assessments Soft Tissue Assessment Soft Tissue Mobility Assessment right sided guarding and tightness of the quadriceps, iliopsoas, adductors Joint Mobility Assessment Joint Mobility Assessment decreased posterior and inferior glide of the right hip capsule PT-OP-G Mobility & Gait Start: 12/31/22 17:55 Freq: Status: Active Protocol: Document 01/01/23 09:45 [facility] (Rec: 01/02/23 14:56 [facility] [id number]) OP Gait Assessment Gait Deviations General Gait Pattern Antalgic,Wide Based Gait Factors Limiting Gait Function Factors Limiting Gait Function Limited Range of Motion,Pain Comments Gait Comments wide based gait and pain with ambulation walking greater than 2 blocks PT-OP-J Posture/Palpation/Skin Start: 12/31/22 17:55 Freq: Status: Active Protocol: Document 01/01/23 09:45 [facility] (Rec: 01/02/23 14:55 [facility] [id number]) Palpation Assessment Location right anterior hip Palpation Findings Soft Tissue Tightness,Spasm, Muscle Guarding,Tenderness Palpation Details tenderness over the anterior hip, tightness at the adductor sean attachment and along the quad proximal attachment PT-OP-K Range of Motion Start: 12/31/22 17:55 Freq: Status: Active Protocol: Document 01/01/23 09:45 [facility] (Rec: 01/01/23 14:11 [facility] [id number]) Hip Goniometric Range of Motion Hip Right Flexion w/Knee Flexed 90 Straight Leg Raise 45 Extension 10 Internal Rotation 5 External Rotation 10 Comments pain with AROM hip flexion, ER , abduction PROM is much more tolerated Hip ROM Limitations Hip ROM Limitations Soft Tissue Tightness,Bony Restriction,Pain Comments pt presenting with impingement type symptoms as well as OA of the right hip, PROM is much more tolerated than AROM PT-OP-M Strength Start: 12/31/22 17:55 Freq: Status: Active Protocol: Document 01/01/23 09:45 [facility] (Rec: 01/02/23 14:56 [facility] [id number]) Hip Strength Hip Manual Muscle Testing Right Flexion (L2) 3 Fair Abduction 2+ Poor+ Adduction 2+ Poor+ PT-OP-Q Treatments Start: 12/31/22 17:55 Freq: Status: Active Protocol: Document 02/11/23 09:02 [facility] (Rec: 02/11/23 09:45 [facility] [id number]) Cardio Equipment Recumbent Elliptical (Biodex) Duration (Minutes) 6 Resistance 2 Therapeutic Exercises Standing Exercises hip add stretch Side right Resistance AROM Equipment Used UE support prn Reps/Minutes 3 x 30 Manual Therapy Treatment Soft Tissue Mobilization R hip Body Location psoas, TFL, quad Mobilization Type Cross-Friction,Myofascial Release,Sustained Pressure, Other Intensity/Depth Moderate Body Position Supine Comments Palpation tenderness to R hip adductor mm/psoas Manual Techniques MWM for hip ER Type lateral hip distraction with movement into IR &ER Body Position Hooklying Comments irritation MWM for hip flexion using mobilization belt Type MWM for hip flexion Body Position Hooklying Comments manual hip distraction with mobilization belt with movement into hip flexion, pt tolerated well manual hip decompression with belt Type hip distraction and decompression with mobilization belt Body Position Hooklying Reps/Duration approx 4 min spent with hip distraction PT-OP-R Modalities Start: 01/23/23 12:02 Freq: Status: Active Protocol: Document 01/23/23 09:11 SW (Rec: 01/23/23 12:08 SW [id number]) Ultrasound Therapy Treatment R hip add Treatment Duration (minutes) 10 Patient Position Supine Coupling Medium Ultrasound Gel Applicator Size (cm2) 5 Frequency Setting (mHz) 1 Mode Setting Continuous Duty Cycle 100% Intensity Setting (w/cm2) 1.5 PT-OP-T Assessment and Plan Start: 12/31/22 17:55 Freq: Status: Active Protocol: Document 02/11/23 09:02 [facility] (Rec: 02/11/23 17:07 [facility] [id number]) Physical Therapy Assessment Assessment Summary Assessment Cristian's hip was flared again today as he was on the boat x 4 days. He doesn't have a lot of carry over with his HEP at this point. Ultrasound did not seem like it made a difference last time Physical Therapy Plan Frequency and Duration Frequency of Treatment 2x/Week Duration of treatment (weeks) 8 Plan of Care Start Date 01/01/23 Plan of Care End Date 02/26/23 Therapeutic Interventions Therapeutic Interventions Home Exercise Program,Joint Mobilizations,Manual Therapy, Patient/Caregiver Education, Self-Care/Home Management,Soft Tissue Mobilization, Therapeutic Exercises Modalities Cold Pack/Ice Massage Next Visit Focus/Plan Next Note Type Treatment Note Next Visit Plan continue with manual therapy techniques to decompress the hip joint, review all HEP stretches
--- NOTE | 2023-02-14 09:47 | PT.OTN ---
Current Diagnoses Pain in right hip (02/14/23) Physical Therapy Treatment Note PT-OP-A Visit Information Start: 12/31/22 17:55 Freq: Status: Active Protocol: Document 02/14/23 09:03 SP (Rec: 02/14/23 09:53 SP [id number]) Out-Patient Physical Therapy Visit Information Visit Information Visit Type Treatment Note Visit Start Time 09:03 Visit Stop Time 09:47 Total Visit Minutes 44 Visit Number 7 Number of QUALITY CONTROL MANAGER Visits 1 Evaluation Information Evaluation Date 01/01/23 PT-OP-B Current Condition Start: 12/31/22 17:55 Freq: Status: Active Protocol: Document 01/01/23 09:45 [facility] (Rec: 01/01/23 11:21 [facility] [id number]) Current Condition History of Current Condition Onset Date 1.5 years ago Current Complaints right hip pain limiting activies and ability to work History of Current Condition pt reports about a year and a half ago he has on his friends boat and went to lift up his right leg and felt a sharp pain in the anterior hip, now when he moves off the couch he will experience sharp pain into the right hip and into the gluteal region. 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 He hasn't been able to work in the last 1.5 year. He has not been able to execise and he has gained 25-30 lbs. Rest makes it better. 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 Current Functional Impairments (Reported) Functional Limitations- ADL's pt has moderate difficulty with activities such as donning and doffing his shoes and squatting Functional Limitations- Mobility/Gait pain prevents walking greater than 2 blocks Functional Limitations- Other pt has been unable to return to work due to hip pain PT-OP-C Subjective Start: 01/02/23 15:00 Freq: Status: Active Protocol: Document 02/14/23 09:03 SP (Rec: 02/14/23 09:53 SP [id number]) OP-PT Subjective Patient Comments Patient Comments Pt reports alot pain in R hip, he states in PT manual massage and gentle distraction the most benifical. He walks in decreased stance time on RLE with lateral wt shift gait . He stated felt better after last tx and was able to assist son with some weeding and tried to incorporate learned sit back stretches. PT-OP-F Manual Assessment Start: 12/31/22 17:55 Freq: Status: Active Protocol: Document 01/01/23 09:45 [facility] (Rec: 01/01/23 14:09 [facility] [id number]) Manual Assessments Soft Tissue Assessment Soft Tissue Mobility Assessment right sided guarding and tightness of the quadriceps, iliopsoas, adductors Joint Mobility Assessment Joint Mobility Assessment decreased posterior and inferior glide of the right hip capsule PT-OP-G Mobility & Gait Start: 12/31/22 17:55 Freq: Status: Active Protocol: Document 01/01/23 09:45 [facility] (Rec: 01/02/23 14:56 [facility] [id number]) OP Gait Assessment Gait Deviations General Gait Pattern Antalgic,Wide Based Gait Factors Limiting Gait Function Factors Limiting Gait Function Limited Range of Motion,Pain Comments Gait Comments wide based gait and pain with ambulation walking greater than 2 blocks PT-OP-J Posture/Palpation/Skin Start: 12/31/22 17:55 Freq: Status: Active Protocol: Document 01/01/23 09:45 [facility] (Rec: 01/02/23 14:55 [facility] [id number]) Palpation Assessment Location right anterior hip Palpation Findings Soft Tissue Tightness,Spasm, Muscle Guarding,Tenderness Palpation Details tenderness over the anterior hip, tightness at the adductor sean attachment and along the quad proximal attachment PT-OP-K Range of Motion Start: 12/31/22 17:55 Freq: Status: Active Protocol: Document 01/01/23 09:45 [facility] (Rec: 01/01/23 14:11 [facility] [id number]) Hip Goniometric Range of Motion Hip Right Flexion w/Knee Flexed 90 Straight Leg Raise 45 Extension 10 Internal Rotation 5 External Rotation 10 Comments pain with AROM hip flexion, ER , abduction PROM is much more tolerated Hip ROM Limitations Hip ROM Limitations Soft Tissue Tightness,Bony Restriction,Pain Comments pt presenting with impingement type symptoms as well as OA of the right hip, PROM is much more tolerated than AROM PT-OP-M Strength Start: 12/31/22 17:55 Freq: Status: Active Protocol: Document 01/01/23 09:45 [facility] (Rec: 01/02/23 14:56 [facility] [id number]) Hip Strength Hip Manual Muscle Testing Right Flexion (L2) 3 Fair Abduction 2+ Poor+ Adduction 2+ Poor+ PT-OP-Q Treatments Start: 12/31/22 17:55 Freq: Status: Active Protocol: Document 02/14/23 09:03 SP (Rec: 02/14/23 09:53 SP [id number]) Therapeutic Exercises Supine Exercises self mob Supine Exercise Name hip inferior hip glide w/ strap supine mat floor anchored on table Side right Equipment Used mob strap Reps/Minutes 3 min total Comments ed/cues post manual for set up , good feedback response (see HO) cookie stretch Supine Exercise Name pt reported stopped to do pain in back hip Side right Comments w/gentle psoas release Other Exercises 1/2 kneel Other Exercise Name hip flexor stretch Side right Equipment Used contact table- cued neutral pelvis alignment Reps/Minutes x10 Comments painfree range, good anterior quad/hip flexor stretch quadruped rock backs Side bilateral Resistance AROM Equipment Used Mat table Reps/Minutes x 10 Comments VC for alignment to feel greater stretch in hips Manual Therapy Treatment Soft Tissue Mobilization R hip Body Location psoas, TFL, quad Mobilization Type Cross-Friction,Instrument Assisted,Myofascial Release, Sustained Pressure,Other Intensity/Depth Moderate Body Position Supine Comments Palpation tenderness to R hip adductor mm/psoas Manual Techniques MWM for hip flexion using mobilization belt Type MWM for hip flexion Body Position Hooklying Comments manual hip distraction with mobilization belt inferior glide with movement into hip flexion, pt tolerated well Manual and self ed/performance - good response PT-OP-R Modalities Start: 01/23/23 12:02 Freq: Status: Active Protocol: Document 01/23/23 09:11 SW (Rec: 01/23/23 12:08 SW [id number]) Ultrasound Therapy Treatment R hip add Treatment Duration (minutes) 10 Patient Position Supine Coupling Medium Ultrasound Gel Applicator Size (cm2) 5 Frequency Setting (mHz) 1 Mode Setting Continuous Duty Cycle 100% Intensity Setting (w/cm2) 1.5 PT-OP-T Assessment and Plan Start: 12/31/22 17:55 Freq: Status: Active Protocol: Document 02/14/23 09:03 SP (Rec: 06/02/23 09:53 SP [id number]) Physical Therapy Assessment Goals 3 Impairment anterior hip and groin pain rated 5-6/10 Mcfp Goal (LTG) pt reports a overall reduction in hip pain to 1-3/10 LTG Duration 8 weeks 2 Impairment Decreased hip ROM Short Term Goal (STG) pt is given a HEP to begin working on hip stretches to improve hip ROM STG Duration 3 weeks Fitness Supervisor Goal (LTG) Pt demonstrates improvements in Hip ROM to WFL LTG Duration 8 weeks 1 Impairment antalgic gait pattern with wide legged gait due to pain and pt has moderate difficulty walking more than 2 blocks due to pain Fitness Supervisor Goal (LTG) Pt's gait pattern is normalized and he is able to walk up to 1 mile without a increase in anterior hip pain LTG Duration 8 weeks Assessment Summary Assessment Pt good response to manual and ed/cues for self set up and abillity to dupicate for self decrease hip jt mob relief at home. Pt able to increase glut fac with improved hip extension and WB into RLE and only slight limp noted leaving . Painfree 1/2 kneel hip flexor stretch this tx. Physical Therapy Plan Frequency and Duration Frequency of Treatment 2x/Week Duration of treatment (weeks) 8 Plan of Care Start Date 01/01/23 Plan of Care End Date 02/26/23 Therapeutic Interventions Therapeutic Interventions Home Exercise Program,Joint Mobilizations,Manual Therapy, Patient/Caregiver Education, Self-Care/Home Management,Soft Tissue Mobilization, Therapeutic Exercises Modalities Cold Pack/Ice Massage Next Visit Focus/Plan Next Note Type Treatment Note Next Visit Plan REview self hip mob, hip flexor stretching, try progress hip strengthening to allow increase stance time and return to ADLs and work. POC: continue with manual therapy techniques to decompress the hip joint, review all HEP stretches
--- NOTE | 2023-04-22 09:17 | PT.OPDS ---
Current Diagnoses Pain in right hip (02/14/23) Visit Care Team Role Provider Type Romelia Parker DO Attending Provider Physician Family Provider Primary Care Provider Referring Provider Specialty: Family Practice Address: [address] [place] [address], [address], [place], [address] Email: [email or web address] Visit Number Visit Number 7 Discharge Summary PT-OP-B Current Condition Start: 12/31/22 17:55 Freq: Status: Active Protocol: Document 01/01/23 09:45 [facility] (Rec: 01/01/23 11:21 [facility] [id number]) Current Condition History of Current Condition Onset Date 1.5 years ago Current Complaints right hip pain limiting activies and ability to work History of Current Condition pt reports about a year and a half ago he has on his friends boat and went to lift up his right leg and felt a sharp pain in the anterior hip, now when he moves off the couch he will experience sharp pain into the right hip and into the gluteal region. 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 He hasn't been able to work in the last 1.5 year. He has not been able to execise and he has gained 25-30 lbs. Rest makes it better. 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 Current Functional Impairments (Reported) Functional Limitations- ADL's pt has moderate difficulty with activities such as donning and doffing his shoes and squatting Functional Limitations- Mobility/Gait pain prevents walking greater than 2 blocks Functional Limitations- Other pt has been unable to return to work due to hip pain PT-OP-C Subjective Start: 01/02/23 15:00 Freq: Status: Active Protocol: Document 02/14/23 09:03 SP (Rec: 02/14/23 09:53 SP [id number]) OP-PT Subjective Patient Comments Patient Comments Pt reports alot pain in R hip, he states in PT manual massage and gentle distraction the most benifical. He walks in decreased stance time on RLE with lateral wt shift gait . He stated felt better after last tx and was able to assist son with some weeding and tried to incorporate learned sit back stretches. PT-OP-F Manual Assessment Start: 12/31/22 17:55 Freq: Status: Active Protocol: Document 01/01/23 09:45 [facility] (Rec: 01/01/23 14:09 [facility] [id number]) Manual Assessments Soft Tissue Assessment Soft Tissue Mobility Assessment right sided guarding and tightness of the quadriceps, iliopsoas, adductors Joint Mobility Assessment Joint Mobility Assessment decreased posterior and inferior glide of the right hip capsule PT-OP-G Mobility & Gait Start: 12/31/22 17:55 Freq: Status: Active Protocol: Document 01/01/23 09:45 [facility] (Rec: 01/02/23 14:56 [facility] [id number]) OP Gait Assessment Gait Deviations General Gait Pattern Antalgic,Wide Based Gait Factors Limiting Gait Function Factors Limiting Gait Function Limited Range of Motion,Pain Comments Gait Comments wide based gait and pain with ambulation walking greater than 2 blocks PT-OP-J Posture/Palpation/Skin Start: 12/31/22 17:55 Freq: Status: Active Protocol: Document 01/01/23 09:45 [facility] (Rec: 01/02/23 14:55 [facility] [id number]) Palpation Assessment Location right anterior hip Palpation Findings Soft Tissue Tightness,Spasm, Muscle Guarding,Tenderness Palpation Details tenderness over the anterior hip, tightness at the adductor sean attachment and along the quad proximal attachment PT-OP-K Range of Motion Start: 12/31/22 17:55 Freq: Status: Active Protocol: Document 01/01/23 09:45 [facility] (Rec: 01/01/23 14:11 [facility] [id number]) Hip Goniometric Range of Motion Hip Right Flexion w/Knee Flexed 90 Straight Leg Raise 45 Extension 10 Internal Rotation 5 External Rotation 10 Comments pain with AROM hip flexion, ER , abduction PROM is much more tolerated Hip ROM Limitations Hip ROM Limitations Soft Tissue Tightness,Bony Restriction,Pain Comments pt presenting with impingement type symptoms as well as OA of the right hip, PROM is much more tolerated than AROM PT-OP-M Strength Start: 12/31/22 17:55 Freq: Status: Active Protocol: Document 01/01/23 09:45 [facility] (Rec: 01/02/23 14:56 [facility] [id number]) Hip Strength Hip Manual Muscle Testing Right Flexion (L2) 3 Fair Abduction 2+ Poor+ Adduction 2+ Poor+ PT-OP-T Assessment and Plan Start: 12/31/22 17:55 Freq: Status: Active Protocol: Document 04/22/23 09:15 [facility] (Rec: 04/22/23 09:17 [facility] [id number]) Physical Therapy Assessment Goals 3 Impairment anterior hip and groin pain rated 5-6/10 Senior Living Goal (LTG) pt reports a overall reduction in hip pain to 1-3/10 LTG Duration 8 weeks 2 Impairment Decreased hip ROM Short Term Goal (STG) pt is given a HEP to begin working on hip stretches to improve hip ROM STG Duration 3 weeks Retail Visual Merchandiser Goal (LTG) Pt demonstrates improvements in Hip ROM to WFL LTG Duration 8 weeks 1 Impairment antalgic gait pattern with wide legged gait due to pain and pt has moderate difficulty walking more than 2 blocks due to pain Senior Living Goal (LTG) Pt's gait pattern is normalized and he is able to walk up to 1 mile without a increase in anterior hip pain LTG Duration 8 weeks Assessment Summary Assessment At the time of his last PT visit Pt had good response to manual and ed/cues for self set up and ability to duplicate for self decrease hip jt mob relief at home. Pt able to increase glut fac with improved hip extension and WB into RLE and only slight limp noted leaving. Pain free 1/2 kneel hip flexor stretch this tx. He had returned to work making it difficult to continue with PT. He was still experiencing hip pain but given stretches and exercises at home Physical Therapy Plan Discharge Physical Therapy Discharge Reasons Plateau in Progress Discharge Comments pt had a plateau in progress and was also not able to continue PT due to work.
== END 2023-04-23 15:58 | disposition home or self-care (01) ==
LOC: PHYS 09:00
PROVIDERS: Family Provider Family Medicine; PCP Family Medicine; Referring Provider Family Medicine; Visit Provider Family Medicine
DX: M25.551 Pain in right hip (principal)
CPT/HCPCS: 97035; 97110; 97140; 97161

== ENCOUNTER → 2023-12-10 09:50 | Outpatient (CLI) | payer OTHER, MEDICAID, SELFPAY ==
[2023-12-10 12:02] LABS: Creatinine Urine Random 107.8 mg/dL
[2023-12-10 12:07] LABS: Microalbumin Urine Random < 0.6 mg/dL (0-1.6)
[2023-12-10 16:02] LABS: Alanine Aminotransferase 57 IU/L (<50); Albumin 3.7 g/dL (3.5-5.0); Albumin Globulin Ratio 1.4 (1.0-2.8); Alkaline Phosphatase 64 U/L (38-126); Aspartate Aminotransferase 42 IU/L (17-59); BUN Creatinine Ratio 21.6 (6-22); Bilirubin Total 0.6 mg/dL (0.2-1.3); Blood Urea Nitrogen 16 mg/dL (9-20); Calcium 9.5 mg/dL (8.4-10.2); Carbon Dioxide 28 mmol/L (22-32); Chloride 104 mmol/L (98-107); Cholesterol 204 mg/dL (140-199); Estimated Glomerular Filt Rate > 60 mL/min (>60); Globulin 2.7 g/dL (1.7-4.1); Glucose 221 mg/dL (70-100); HDL Cholesterol 40 mg/dL (40-60); HEMOLYSIS < 15 (0-50); LDL Cholesterol Calculated 136 mg/dL (<100); Potassium 4.6 mmol/L (3.4-5.1); Sodium 137 mmol/L (137-145); Total Protein 6.4 g/dL (6.3-8.2); Triglycerides 140 mg/dL (35-150)
== END ==
LOC: LAB 09:51
PROVIDERS: Family Provider Family Medicine; PCP Family Medicine; Referring Provider Family Medicine; Visit Provider Family Medicine
DX: R73.01 Impaired fasting glucose (principal); E78.2 Mixed hyperlipidemia; F17.200 Nicotine dependence, unspecified, uncomplicated; I10 Essential (primary) hypertension
CPT/HCPCS: 36415; 80053; 80061; 82043; 82570; 83036

== ENCOUNTER → 2025-05-20 11:22 | Outpatient (CLI) | payer OTHER, SELFPAY ==
[2025-05-20 12:09] LABS: Hemoglobin A1C% w Est Avg Glu 6.6 % (4.0-6.0)
[2025-05-20 12:17] LABS: Alanine Aminotransferase 102 IU/L (<50); Albumin 4.0 g/dL (3.5-5.0); Albumin Globulin Ratio 1.4 (1.0-2.8); Alkaline Phosphatase 109 U/L (38-126); Blood Urea Nitrogen 16 mg/dL (9-20); Calcium 9.5 mg/dL (8.4-10.2); Carbon Dioxide 23 mmol/L (22-32); Chloride 103 mmol/L (98-107); Cholesterol 250 mg/dL (140-199); Estimated Glomerular Filt Rate > 60 mL/min (>60); Globulin 2.9 g/dL (1.7-4.1); Glucose 133 mg/dL (70-99); HDL Cholesterol 39 mg/dL (40-60); HEMOLYSIS 29 (0-50); Potassium 4.7 mmol/L (3.4-5.1); Sodium 137 mmol/L (137-145); Total Protein 6.9 g/dL (6.3-8.2); Triglycerides 466 mg/dL (35-150)
[2025-05-20 13:37] LABS: HIV 1 & 2 Ab/Ag 4th Gen Combo NEGATIVE (NEGATIVE)
== END ==
PROVIDERS: Family Provider Family Medicine; PCP Family Medicine; Referring Provider Family Medicine; Visit Provider Family Medicine
DX: R73.01 Impaired fasting glucose (principal); I10 Essential (primary) hypertension; E78.2 Mixed hyperlipidemia; Z12.5 Encounter for screening for malignant neoplasm of prostate
CPT/HCPCS: 36415; 80053; 80061; 80076; 83036; 87389; G0103